=== PATIENT | male | born 2000 ===

== ENCOUNTER 2020-10-04 10:30 | Inpatient (IN) | payer OTHER ==
[~2020-10-04 10:30] MED LIST: Iopamidol 370 76% 100 ML VIAL ONE
[2020-10-04] MEDS ORDERED: Ketorolac Tromethamine 30 MG/ML VIAL ONE (10:47)
[2020-10-04 11:16] LABS: #Lymphocytes 1.2 thou/uL (1.20-3.40); #Monocytes 0.8 thou/uL (0.11-0.59); #Neutrophils 3.4 thou/uL (1.40-6.50); %Basophils 0.1 % (0.0-1.0); %Eosinophils 0.8 % (0.0-10.0); %Lymphocytes 21.4 % (21.0-51.0); %Monocytes 14.8 % (0.0-10.0); %Neutrophils 62.9 % (42.0-75.0); Hemoglobin 12.9 g/dL (14.0-18.0); Mean Corpuscular HGB CONC 34.4 g/dL (32.0-36.0); Mean Corpuscular Hemoglobin 31.3 pg (27.0-31.0); Mean Platelet Volume 8.6 fL (7.4-10.4); Platelet Count 167 thou/uL (130-400); RBC Distribution Width 11.4 % (11.5-14.5); Red Blood Cell (RBC) Count 4.12 mill/uL (4.70-6.10); White Blood Cell (WBC) Count 5.4 thou/uL (4.8-10.8)
[2020-10-04 11:40] LABS: ALT (SGPT) 15 U/L (8-55); AST (SGOT) 39 U/L (5-34); Alkaline Phosphatase 60 U/L (40-110); Anion Gap 11 mmol/L (10-20); BUN (Urea Nitrogen) 9 mg/dL (8.9-20.6); CK (CPK) 294 U/L (30-200); Calc. Creatinine Clearance 0 mL/min (70-130); Calcium 9.4 mg/dL (7.8-10.44); Carbon Dioxide 26 mmol/L (22-29); Chloride 106 mmol/L (98-107); Globulin 2.5 g/dL (2.4-3.5); Glucose 108 mg/dL (70-105); Potassium 3.8 mmol/L (3.5-5.1); Protein, Total 6.5 g/dL (6.0-8.3); Sodium 139 mmol/L (136-145)
[2020-10-04 12:11] LABS: CKMB 23.4 ng/mL (0-6.6)
[2020-10-04 12:34] LABS: Acetaminophen Less than 6.0 mcg/mL (10.0-30.0); Alcohol Less than 10 mg/dL (Less than 10); Salicylate Less than 8.0 mg/dL (15.0-30.0)
[2020-10-04] MEDS ORDERED: Aspirin Chewable 81 MG TAB ONE (12:47)
[2020-10-04 14:08] LABS: CKMB 34.1 ng/mL (0-6.6)
[2020-10-04] MEDS ORDERED: Ondansetron PF 4 MG/2 ML Vial IVP PRN (14:45)
[2020-10-04] MEDS ORDERED: Ondansetron ODT 4 MG TAB SL PRN (14:45)
[2020-10-04 14:56] VITALS: BMI 25.7
[2020-10-04 15:07] LABS: Troponin I 8.093 ng/mL (< 0.028)
[2020-10-04] MEDS ORDERED: Communication Order-Pharmacy FS SCH (15:15)
[2020-10-04] MEDS ORDERED: Heparin 10,000 UNITS/ 10 ML VIAL ONE (15:28)
[2020-10-04] MEDS ORDERED: Lidocaine 1% (PF) 30 ML VIAL ONE ×2 (15:28→15:32)
[2020-10-04] MEDS ORDERED: Nitroglycerin 100MG/250ML BOT 250 ML ONE (15:31)
[2020-10-04] MEDS ORDERED: Verapamil 5 MG/2 ML VIAL ONE (15:31)
[2020-10-04] MEDS: Sodium Chloride 0.9% 1,000 ML IV SCH (15:38)
[2020-10-04 17:20] LABS: SARS-CoV-2 PCR by NAA Not Detected (NotDetected)
[2020-10-04] MEDS ORDERED: Nitroglycerin 0.4 MG TAB (25 Tab Bottle) SL PRN (17:21)
[2020-10-04] MEDS ORDERED: Sodium Chloride 0.9% 200 ML IV PRN (17:21)
[2020-10-04] MEDS ORDERED: Acetaminophen/Codeine 30-300mg Tablet PO PRN ×2 (17:21)
[2020-10-04 17:59] LABS: Troponin I 8.645 ng/mL (< 0.028)
[2020-10-04] MEDS ORDERED: predniSONE 20 MG TAB PO SCH (18:15)
[2020-10-05] MEDS: Sodium Chloride 0.9% 1,000 ML IV SCH (00:04)
[2020-10-05] MEDS ORDERED: predniSONE 20 MG TAB PO SCH (08:00)
[2020-10-05 13:47] VITALS: BP 117/71; TEMP 97.9
== END 2020-10-05 13:00 | disposition home or self-care (01) | DRG 282 ==
LOC: ERS 10:30 → 2NO 13:26
PROVIDERS: ADMIT Internal Medicine Cardiovascular Disease; ATTEND Internal Medicine Cardiovascular Disease
PROC: 4A023N7 Measurement of Cardiac Sampling and Pressure, Left Heart, Percutaneous Approach (ICD-10-PCS; principal; 2020-10-04)
PROC: B2111ZZ Fluoroscopy of Multiple Coronary Arteries using Low Osmolar Contrast (ICD-10-PCS; 2020-10-04)
DX: I51.4 Myocarditis, unspecified (principal); I21.A1 Myocardial infarction type 2; T50.B95A Adverse effect of other viral vaccines, initial encounter; F90.9 Attention-deficit hyperactivity disorder, unspecified type; Z20.822 Contact with and (suspected) exposure to COVID-19
CPT/HCPCS: 36415; 71045; 71275; 80053; 80307; 82550; 82553; 84484; 85025; 87635; 93005; 93306; 93458; 96374; J1644; J1885; J2001; J7512; Q9967; U0003; U0005